=== PATIENT | male | born 1945 | race Caucasian/White ===

== ENCOUNTER 2024-04-18 09:24 | Emergency (ER) | payer BC, MEDICARE | END 2024-04-18 13:03 | disposition home or self-care (01) | LOC: CSHERS 09:24 | DX: J06.9 Acute upper respiratory infection, unspecified (principal); B97.89 Other viral agents as the cause of diseases classified elsewhere; R05.9 Cough, unspecified; I10 Essential (primary) hypertension | CPT/HCPCS: 87428; 99283 ==